=== PATIENT | female | born 1965 | race Caucasian/White ===

== ENCOUNTER → 2019-06-08 13:11 | Outpatient (CLI) | payer BC, SELFPAY ==
--- NOTE | ~2019-06-08 | US_ITS ---
EXAMINATION: US pelvic complete w TV EXAM DATE: 06/08/2019 13:44 INDICATION: Postmenopausal bleeding. TECHNIQUE: Pelvic transabdominal and transvaginal sonogram was performed. There are multiple graysca le and Doppler images available for interpretation. There is no prior study for comparison. FINDINGS: Uterus measures 7.0 x 3.3 x 4.5 cm, and is morphologically normal. Endometrial stripe edel sures 4 mm, within normal limits. There is no free pelvic fluid. Right adnexa: The right ovary is normal in size and morphology. Left adnexa: The ovary is not identified. There is no adnexal mass. IMPRESSION: 1. Unremarkable pelvic ultrasound exam. Reviewed, dictated and finalized at location B. OR BEAUTY SALON ASSISTANT
== END ==
PROVIDERS: PCP Family Medicine Adolescent Medicine; Visit Provider Physician Assistant
DX: N95.0 Postmenopausal bleeding (principal)
CPT/HCPCS: 76830; 76856

== ENCOUNTER → 2020-05-06 11:57 | Outpatient (CLI) | payer BC, SELFPAY ==
--- NOTE | ~2020-05-06 | MM_ITS ---
EXAMINATION: MM screening mahesh BI w tip HISTORY: Screening TECHNIQUE: Craniocaudal and mediolateral oblique 3-D tomosynthesis images were obtained and synthetic 2-D images were generated. CAD analysis was submitted and interpreted. COMPARISON: Comparison to multiple prior studies sequentially, with oldest reviewed study dated 02/09. BREAST PARENCHYMAL COMPOSITION: The breasts are extremely dense, which lowers the sensitivity of mamm ography. FINDINGS: There is no evidence of suspicious mass, calcification, or architectural distortion to sugg est malignancy in either breast. There has been no suspicious interval change. IMPRESSION: 1. No mammographic evidence of malignancy. 2. Recommend routine screening mammography in one year. BI-RADS Category 1: Negative Reviewed, dictated and finalized at location A. EL RIFLER HOOK
== END ==
PROVIDERS: PCP Family Medicine Adolescent Medicine; Visit Provider Family Medicine Adolescent Medicine
DX: Z12.31 Encounter for screening mammogram for malignant neoplasm of breast (principal)
CPT/HCPCS: 77063; 77067

== ENCOUNTER 2021-05-06 15:40 | Outpatient (CLI) | payer BC, SELFPAY ==
--- NOTE | ~2021-05-06 | MM_ITS ---
EXAMINATION: MM screening mahesh BI w tip HISTORY: Screening mammogram, family history of breast cancer in her sister. TECHNIQUE: Craniocaudal and mediolateral oblique 3-D tomosynthesis images were obtained and synthetic 2-D images were generated. CAD analysis was submitted and interpreted. COMPARISON: 05/06/2020, 03/28/2019, 03/16/2019 BREAST PARENCHYMAL COMPOSITION: The breasts are heterogeneously dense, which may obscure small masses . FINDINGS: There is no evidence of suspicious mass, calcification, or architectural distortion to sugg est malignancy in either breast. There has been no suspicious interval change. IMPRESSION: 1. No mammographic evidence of malignancy. 2. Recommend routine screening mammography in one year. BI-RADS Category 1: Negative Reviewed, dictated and finalized at location A. STIGATION OFFICER
== END 2021-05-06 15:41 | disposition home or self-care (01) ==
PROVIDERS: PCP Family Medicine Adolescent Medicine; Visit Provider Family Medicine Adolescent Medicine
DX: Z12.31 Encounter for screening mammogram for malignant neoplasm of breast (principal)
CPT/HCPCS: 77063; 77067

== ENCOUNTER 2021-08-26 06:37 | Outpatient (CLI) | payer BC, SELFPAY ==
--- NOTE | ~2021-08-26 | MR_ITS ---
EXAMINATION: MR brain/brain stem wo con DATE: 08/26/2021 07:33 INDICATION: Migraine, unspecified, not intractable, without status migrainosus. TECHNIQUE: Magnetic resonance imaging (MRI) of the brain and brainstem was performed without intraven ous contrast. COMPARISON: None. FINDINGS: There are scattered areas of nonspecific increased T2-weighted signal intensity in the cere bral white matter. There is no intracranial hemorrhage, acute infarction, or abnormal intracranial ma ss lesion. The ventricles are normal in size. The orbits are normal. There is a trace left mastoid ef fusion. IMPRESSION: 1. Moderate nonspecific cerebral white matter disease, which likely represents chronic small vessel i schemic disease. Reviewed, dictated and finalized at location B. IMPRESSION: 1. Moderate nonspecific cerebral white matter disease, which likely represents chronic small vessel ischemic disease.
== END 2021-08-26 06:38 | disposition home or self-care (01) ==
PROVIDERS: PCP Family Medicine Adolescent Medicine; Visit Provider Physician Assistant
DX: G43.909 Migraine, unspecified, not intractable, without status migrainosus (principal); R90.82 White matter disease, unspecified
CPT/HCPCS: 70551

== ENCOUNTER → 2022-07-01 14:56 | Outpatient (CLI) | payer BC, SELFPAY ==
--- NOTE | ~2022-07-01 | MM_ITS ---
EXAMINATION: MM screening mahesh BI w tip HISTORY: Screening TECHNIQUE: Craniocaudal and mediolateral oblique 3-D tomosynthesis images were obtained and synthetic 2-D images were generated. CAD analysis was submitted and interpreted. COMPARISON: Comparison to multiple prior studies sequentially, with oldest reviewed study dated 12/08. BREAST PARENCHYMAL COMPOSITION: The breasts are heterogeneously dense, which may obscure small masses . FINDINGS: There is no evidence of suspicious mass, calcification, or architectural distortion to sugg est malignancy in either breast. There has been no suspicious interval change. IMPRESSION: 1. No mammographic evidence of malignancy. 2. Recommend routine screening mammography in one year. BI-RADS Category 1: Negative Reviewed, dictated and finalized at location A.
== END ==
PROVIDERS: PCP Family Medicine Adolescent Medicine; Visit Provider Family Medicine Adolescent Medicine
DX: Z12.31 Encounter for screening mammogram for malignant neoplasm of breast (principal)
CPT/HCPCS: 77063; 77067

== ENCOUNTER 2023-10-18 01:33 | Day surgery (SDC) | payer BC, SELFPAY ==
[2023-09-30 11:37] VITALS: BMI 19.5
--- NOTE | 2023-09-30 12:02 | PC.NURSE ---
Pt pre-op interview done. Prep instuctions reviewed with pt. She kept insisting she could have liquids-ie. coffee the morning of procedure on 10/18/2023, I explained she could not have anything after midnight on 10/17/23. She insisted her instructions said she could or that someone said she could have it the am of procedure. I reiterated that the instructions say NPO after midnight and she could have 1 oz of water with meds 3 hours prior to procedure. I did clarify she would be canceled if she drinks fluids the am of the procedure.
[2023-10-18 08:05] VITALS: BP 115/58; PULSE 86; RESP 16; TEMP 36.2; O2SAT 100
[2023-10-18] MEDS: LACTATED RINGERS 1,000 ML 150 ML IV CONT (08:19)
--- NOTE | 2023-10-18 09:36 | WPDANESEPPF ---
Anes - Initial Pre Proc Eval Procedure: Operation Date: 10/18/23 09:30 Proposed Procedures p Screening Colonoscopy - Ki Arriaza DO Date/Time: 10/18/23 09:36 Surgeon: Ki Arriaza DO Pre Op Diagnosis: Neoplasm Screening Patient Data Age: 57 Gender: F Height: 1.6 m Weight: 46.9 kg Last Vital Signs Temp 97.1 F L 10/18/23 08:05 Pulse 86 10/18/23 08:05 Resp 16 10/18/23 08:05 BP 115/58 L 10/18/23 08:05 Pulse Ox 100 10/18/23 08:05 O2 Del Method Room Air 10/18/23 08:05 Allergies Allergy/AdvReac Type Severity Reaction Status Date / Time No Known Allergies Allergy Mild Verified 10/18/23 08:05 Home Medications Medication Instructions Recorded Confirmed Type atorvastatin 20 mg tablet 20 mg PO DAILY #90 tabs 08/16/23 10/18/23 Rx sumatriptan succinate 100 mg tablet See Rx Instructions .Route 09/13/23 09/30/23 Rx .COMPLEX #9 tabs Amberen 2 tab-cap PO DAILY 09/30/23 09/30/23 History omega 3-owt-nuw-fish oil 300 1 cap PO DAILY 09/30/23 09/30/23 History mg-1,000 mg capsule (Fish Oil) Patient hx anesthesia problems: none Family hx anesthesia problems: none Results Review: All pre-operative results and documents have been reviewed as part of the pre-operative evaluation. [facility] Family History Family History Father Heart disease Mother Carcinoma of colon Sibling Breast cancer Bone cancer Social History Social History Smoking packs per day: 1 Smoking cigarettes per day: 20.0 Years smoked: 11 Smoking pack-years: 11.00 Smoking status: Former smoker Tobacco type: cigarettes Second hand tobacco smoke exposure: No Smoking end date: 04/11/13 Alcohol intake: current Drinks per week: 14 Alcohol use details: BEERS Substance use: never Substance use type: does not use Living arrangements: with family Occupation/Education: retired Gender identity (if verbalized by the patient): Female Sexual Orientation (if Verbalized by the Patient): Straight or Heterosexual Spiritual care concerns: No Agree to blood products: Yes Anes - Eval Final PreProcedure Day of Procedure 10/18/23 09:36 Patient weight: normal Heart: regular rate and rhythm Lungs: clear to auscultation Airway: Mallampati scale class II Neurological: alert and oriented Last oral intake: >/= 8 hours ASA classification: II Emergent: no Anesthetic plan: proceed Anesthesia type and monitoring: general GIVS and standard monitoring Results Review: All pre-operative results and documents have been reviewed as part of the pre-operative evaluation. Informed Consent: The patient's anesthetic plan and its attendant risks and benefits were discussed with the patient/family/POA. Questions were solicited and answers provided to the satisfaction of the patient/family/POA.
--- NOTE | 2023-10-18 09:45 | PM.IMHP ---
H&P: HPI History of Present Illness Date/Time: 10/18/23 09:45 Chief Complaint: screening, family history of colon cancer Narrative: this is a 57-year-old woman who presents for colonoscopy. Her last colonoscopy was 5 years ago. She denies any hematochezia or melena. She does have a family history of colon cancer in her mother. Review of Systems Review of Systems: All systems reviewed & are unremarkable except as noted in HPI and below Constitutional: Constitutional: Denies chills, Denies fever(s), Denies headache(s) and Denies weight loss Eyes: Eyes: Denies change in vision ENT: Denies dizziness, Denies headache(s), Denies neck mass and Denies throat swelling Cardiovascular: Cardiovascular: Denies chest pain, Denies lightheadedness and Denies dyspnea Respiratory: Respiratory: Denies cough, Denies dyspnea and Denies wheezing Gastrointestinal: Gastrointestinal: Denies abdominal pain, Denies change in bowel habits, Denies nausea and Denies vomiting Genitourinary: Genitourinary: Denies hematuria and Denies dysuria Musculoskeletal: Musculoskeletal: Reports as per HPI Integumentary/Breasts: Skin/Breast: Reports as per HPI Neurologic: Denies dizziness and Denies headache(s) Allergic/Immunologic: Allergic/Immunologic: Denies throat swelling and Denies wheezing PMF Family History Family History Father Heart disease Mother Carcinoma of colon Sibling Breast cancer Bone cancer Social History Social History Smoking packs per day: 1 Smoking cigarettes per day: 20.0 Years smoked: 11 Smoking pack-years: 11.00 Smoking status: Former smoker Tobacco type: cigarettes Second hand tobacco smoke exposure: No Smoking end date: 04/11/13 Alcohol intake: current Drinks per week: 14 Alcohol use details: BEERS Substance use: never Substance use type: does not use Living arrangements: with family Occupation/Education: retired Gender identity (if verbalized by the patient): Female Sexual Orientation (if Verbalized by the Patient): Straight or Heterosexual Spiritual care concerns: No Agree to blood products: Yes Meds Home Medications and Allergies Home Medications Medication Instructions Recorded Confirmed Type atorvastatin 20 mg tablet 20 mg PO DAILY #90 tabs 08/16/23 10/18/23 Rx sumatriptan succinate 100 mg tablet See Rx Instructions .Route 09/13/23 09/30/23 Rx .COMPLEX #9 tabs Amberen 2 tab-cap PO DAILY 09/30/23 09/30/23 History omega 0-llv-pvt-fish oil 300 1 cap PO DAILY 09/30/23 09/30/23 History mg-1,000 mg capsule (Fish Oil) Allergies Allergy/AdvReac Type Severity Reaction Status Date / Time No Known Allergies Allergy Mild Verified 10/18/23 08:05 Vital Signs Vital Signs - 24 hr 10/18/23 08:05 Temperature 36.2 C L Pulse Rate 86 Respiratory Rate 16 Blood Pressure 115/58 L Pulse Oximetry 100 Oxygen Delivery Room Air Exam Const: General: no acute distress and alert Orientation/consciousness: patient oriented x3 HENMT: Head: normocephalic and atraumatic Ears: hearing grossly normal bilaterally Face/Nose/Sinus: Normal nares present Mouth: Yes Normal oral and palatal mucosa present Eyes: Periorbital: periorbital findings normal Sclera: sclerae normal EOM: EOMs intact bilaterally Neck: Neck: normal visual inspection, no lymphadenopathy and trachea midline Chest: Chest palpation & inspection: normal inspection of the chest Resp: Effort & Inspection: normal respiratory effort Auscultation: clear to auscultation bilaterally Cardio: Jugular venous distension: no JVD Rate: regular rate Rhythm: regular rhythm Heart sounds: S1 normal heart sound present and S2 normal heart sound present Peripheral pulses: Peripheral pulses 2+ throughout GI: Inspection: normal to inspection GI Palp: Yes Soft to palpation, No Tenderness to palpat
[2023-10-18 10:20] VITALS: BP 96/46; PULSE 69; RESP 19; O2SAT 100
[2023-10-18 10:30] VITALS: BP 106/52; PULSE 69; RESP 17; O2SAT 100
[2023-10-18 10:40] VITALS: BP 128/73; PULSE 63; RESP 14; O2SAT 100
== END 2023-10-18 10:59 | disposition home or self-care (01) ==
PROVIDERS: PCP Family Medicine Adolescent Medicine; Visit Provider Surgery
PROC: 0DJD8ZZ Inspection of Lower Intestinal Tract, Via Natural or Artificial Opening Endoscopic (ICD-10-PCS; CPT 45378; principal; 2023-10-18 09:30)
DX: Z12.11 Encounter for screening for malignant neoplasm of colon (principal); Z80.0 Family history of malignant neoplasm of digestive organs; Z87.891 Personal history of nicotine dependence
CPT/HCPCS: 45378; J2704; J7120

== ENCOUNTER 2023-11-01 15:28 | Outpatient (CLI) | payer BC, SELFPAY ==
--- NOTE | ~2023-11-01 | MM_ITS ---
EXAMINATION: MM screening mahesh BI w tip HISTORY: Screening TECHNIQUE: Craniocaudal and mediolateral oblique 3-D tomosynthesis images were obtained and synthetic 2-D images were generated. CAD analysis was submitted and interpreted. COMPARISON: Comparison to multiple prior studies sequentially, with oldest reviewed study dated 10/2017. BREAST PARENCHYMAL COMPOSITION: Dense: The breasts are heterogeneously dense, which may obscure small masses FINDINGS: There is no evidence of suspicious mass, calcification, or architectural distortion to sugg est malignancy in either breast. There has been no suspicious interval change. IMPRESSION: 1. No mammographic evidence of malignancy. 2. Recommend routine screening mammography in one year. BI-RADS Category 1: Negative Reviewed, dictated and finalized at location B.
== END 2023-11-01 15:29 ==
LOC: MICIMG 15:29
PROVIDERS: PCP Family Medicine Adolescent Medicine; Visit Provider Family Medicine Adolescent Medicine
DX: Z12.31 Encounter for screening mammogram for malignant neoplasm of breast (principal)
CPT/HCPCS: 77063; 77067

== ENCOUNTER 2023-11-18 08:38 | Outpatient (CLI) | payer BC, SELFPAY ==
--- NOTE | ~2023-11-18 | XR_ITS ---
XR lumbar spine 2-3V 11/18/2023 08:52 Indication: Chronic low back pain and left hip Procedure: 3 views lumbar spine Comparison: No prior studies for comparison. Findings: Vertebral body heights are maintained. No fracture, subluxation or dislocation. No evidence for spondylolisthesis. Pedicles intact. Sacral foramen are symmetric.There is mild lower lumbar face t hypertrophy. There is disc narrowing at L4-5 and L5-S1. Impression: 1: Mild lumbar spondylosis. Reviewed, dictated and finalized at location B. Impression: 1: Mild lumbar spondylosis.
== END 2023-11-18 08:39 ==
LOC: MICIMG 08:40
PROVIDERS: PCP Family Medicine Adolescent Medicine; Visit Provider Family Medicine Adolescent Medicine
DX: M54.50 Low back pain, unspecified (principal); M43.06 Spondylolysis, lumbar region
CPT/HCPCS: 72100

== ENCOUNTER 2024-04-23 10:25 | Outpatient (CLI) | payer BC, SELFPAY ==
[2024-04-23 13:45] LABS: Basophils Percent Auto 0.5 % (0.2-1.2); Eosinophils Absolute Auto 0.1 K/mm3 (0-0.3); Eosinophils Percent Auto 2.4 % (0-4.4); Hematocrit 42.3 % (37.0-47.0); Hemoglobin 13.7 g/dL (12.0-15.0); Immature Granulocyte Absolute 0.02 K/mm3 (0.00-0.031); Immature Granulocyte Percent A 0.4 % (0-0.5); Lymphocytes Absolute Auto 1.27 K/mm3 (0.9-3.2); Mean Corpuscular HGB Conc 32.4 g/dl (32-36); Mean Corpuscular Hemoglobin 30.9 pg (26-34); Mean Corpuscular Volume 95.3 fl (80-100); Monocytes Absolute Auto 0.4 K/mm3 (0.1-0.6); Monocytes Percent Auto 6.9 % (2.6-8.5); Neutrophils Absolute Auto 3.7 K/mm3 (1.3-6.7); Neutrophils Percent Auto 66.8 % (45.5-73.1); Platelet Count Result 169 k/mm3 (150-375); Red Blood Count 4.44 M/mm3 (4.2-5.4); Red Cell Distribution Width 12.7 % (11.5-14.5); White Blood Count 5.5 K/mm3 (4.5-10.0)
== END 2024-04-23 10:26 | disposition home or self-care (01) ==
LOC: ANHGOSHLAB 10:27
PROVIDERS: PCP Family Medicine Adolescent Medicine; Visit Provider Otolaryngology Otolaryngology/Facial Plastic Surgery
DX: E78.00 Pure hypercholesterolemia, unspecified (principal)
CPT/HCPCS: 36415; 85025

== ENCOUNTER 2024-11-02 10:49 | Outpatient (CLI) | payer BC, SELFPAY ==
--- NOTE | ~2024-11-02 | MM_ITS ---
EXAMINATION: MM screening mahesh BI w tip HISTORY: Screening TECHNIQUE: Craniocaudal and mediolateral oblique 3-D tomosynthesis images were obtained and synthetic 2-D images were generated. CAD analysis was submitted and interpreted. COMPARISON: Comparison to multiple prior studies sequentially, with oldest reviewed study dated 09/2018. BREAST PARENCHYMAL COMPOSITION: Dense: The breasts are extremely dense, which lowers the sensitivity of mammography. FINDINGS: There is no evidence of suspicious mass, calcification, or architectural distortion to sugg est malignancy in either breast. There has been no suspicious interval change. IMPRESSION: 1. No mammographic evidence of malignancy. 2. Recommend routine screening mammography in one year. BI-RADS Category 1: Negative Reviewed, dictated and finalized at location A.
== END 2024-11-02 10:50 | disposition home or self-care (01) ==
LOC: MICIMG 10:50
PROVIDERS: PCP Family Medicine Adolescent Medicine; Visit Provider Family Medicine Adolescent Medicine
DX: Z12.31 Encounter for screening mammogram for malignant neoplasm of breast (principal)
CPT/HCPCS: 77063; 77067

== ENCOUNTER → 2025-02-19 10:39 | Outpatient (CLI) | payer BC, SELFPAY ==
--- NOTE | ~2025-02-19 | XR_ITS ---
XR lumbar spine 2-3V Indication: M54.50 Low back pain 1 month no injury hx l4/l5 bulging disc Comparison: None Findings: The vertebral heights are intact. No fracture or subluxation. The disc heights are intact. Soft tissues unremarkable Impression: No acute abnormality. Reviewed, dictated and finalized at location P. LE INSPECTOR Impression: No acute abnormality.
== END ==
LOC: EXPCRAD 10:42
PROVIDERS: PCP Family Medicine; Visit Provider Family Medicine
DX: M54.50 Low back pain, unspecified (principal)
CPT/HCPCS: 72100

== ENCOUNTER 2025-02-22 12:39 | Outpatient (CLI) | payer BC, SELFPAY ==
--- NOTE | ~2025-02-22 | US_ITS ---
EXAMINATION: US renal BI, 02/22/2025 12:45 FLORAL CLERK HISTORY: R31.9 - Hematuria, unspecified Comparison: None Technique: Oneal-scale and color Doppler images were obtained. Findings: KIDNEYS: Renal cortices intact, no solid masses, cysts or calculi, no hydronephrosis. Right Kidney: Right kidney 10.3 x 3.6 x 4.7 cm, mild hydronephrosis. Left Kidney: Left kidney 11 x 4.1 x 4.1 cm, normal. Bladder: The bladder is unremarkable. . Impression: Mild right hydronephrosis Reviewed, dictated and finalized at location P. AL CLERK Impression: Mild right hydronephrosis
== END 2025-02-22 12:40 | disposition home or self-care (01) ==
LOC: GOSHIMG 12:39
PROVIDERS: PCP Family Medicine; Visit Provider Family Medicine
DX: N13.30 Unspecified hydronephrosis (principal); R31.9 Hematuria, unspecified
CPT/HCPCS: 76770

== ENCOUNTER 2025-03-20 16:00 | Outpatient (CLI) | payer BC, SELFPAY ==
--- NOTE | ~2025-03-20 | CT_ITS ---
EXAMINATION: CT abdomen pelvis wo/w con DATE: 03/20/2025 16:52 INDICATION: Right hydronephrosis TECHNIQUE: Computed tomography (CT) of the abdomen and pelvis was performed without intravenous contrast. CT of the abdomen and pelvis was then performed with a total of 130 mL Omnipaque-350 intravenous contrast using a double-bolus technique for simultaneous opacification of the renal parenchyma and renal collecting system. Automated exposure control and iterative reconstruction technique were employed. The dose-length product was 428.66 mGy-cm. COMPARISON: CT dated 01/06/2018 and ultrasound dated 02/22/2025 FINDINGS: Lung bases are clear. Heart size is normal. No pericardial or pleural effusion. 5 mm low-attenuation hepatic cyst. Spleen, pancreas and bilateral adrenal glands are normal. There are also couple small low-attenuation right renal cysts the larger measuring 5 mm. No urolithiasis or hydronephrosis. The bilateral renal collecting systems and ureters are opacified in their entirety with no filling defects or urothelial irregularities. Bladder is normal. Bowels are unremarkable. Retroverted antral flexed uterus. Increased prominence of the bilateral parametrial vessels and gonadal veins which can be seen with pelvic vasculature congestion syndrome. No free intraperitoneal gas or fluid. No pathologically enlarged abdominal or pelvic lymphadenopathy. Mild lumbar spondylosis. IMPRESSION: 1. Normal kidneys and ureters with no urolithiasis or hydronephrosis. Reviewed, dictated and finalized at location A. ND SUPPORT AGENT
[2025-03-20 22:27] LABS: Estimated Glomerular Filt Rate > 60
== END 2025-03-20 16:01 | disposition home or self-care (01) ==
PROVIDERS: PCP Family Medicine; Visit Provider Physician Assistant
DX: N13.30 Unspecified hydronephrosis (principal)
CPT/HCPCS: 74178; Q9967